=== PATIENT | male | born 1995 | race Caucasian/White ===

== ENCOUNTER 2023-12-29 16:49 | Emergency (ER) | payer BC ==
[~2023-12-29] VITALS: Ht 172.7 cm; Wt 104.3 kg
[2023-12-29] MEDS: ONDANSETRON 4 MG TAB.RAPDIS PO ONE (19:00)
[2023-12-29] MEDS: MORPHINE SULFATE INJ 2 MG/ML DISP.SYRIN IM ONE (19:00)
[2023-12-29] MEDS ORDERED: MORPHINE SULFATE INJ 2 MG/ML DISP.SYRIN ONE (19:36)
[2023-12-29] MEDS ORDERED: ONDANSETRON 4 MG TAB.RAPDIS ONE (19:36)
[2023-12-29] MEDS ORDERED: NAPR-1009 PO (20:03)
[2023-12-29] MEDS ORDERED: CYCL5TAB PO (20:03)
[2023-12-29 20:42] VITALS: BP 145/74; TEMP 97.8; O2SAT 99
== END 2023-12-29 20:44 | disposition home or self-care (01) ==
LOC: ER 16:55
DX: M54.59 Other low back pain (principal); M79.671 Pain in right foot; M79.604 Pain in right leg
CPT/HCPCS: 99285; 72131; 96372; 73630; Q0162; J2270